=== PATIENT | female | born 1950 | race Caucasian/White ===

== ENCOUNTER 2021-03-23 07:00 | Outpatient (CLI) | payer MEDICARE, OTHER | END 2021-03-23 23:59 | disposition home or self-care (01) | LOC: COV 07:00 | PROVIDERS: ATTEND Neurological Surgery | DX: Z01.812 Encounter for preprocedural laboratory examination (principal); Z20.822 Contact with and (suspected) exposure to COVID-19 ==

== ENCOUNTER 2021-05-09 08:06 | Outpatient (CLI) | payer MEDICARE, OTHER | END 2021-05-09 08:07 | disposition short-term general hospital (02) | LOC: EMS 08:06 | DX: R06.00 Dyspnea, unspecified (principal); R06.2 Wheezing; R05 Cough | CPT/HCPCS: A0425; A0427 ==